=== PATIENT | female | born 1980 | race Caucasian/White ===

== ENCOUNTER 2016-08-08 04:11 | Inpatient (IN) | payer OTHER ==
[2016-08-08 05:50] LABS: Basophils % (Auto) 0.7 % (0.0-1.8); Eosinophils % (Auto) 1.2 % (0.0-4.3); Hematocrit 36.7 % (30.3-42.9); Hemoglobin 12.3 gm/dl (10.1-14.3); Mean Corpuscular HGB Conc 34 % (30-34); Mean Corpuscular Hemoglobin 28 pg (28-32); Mean Corpuscular Volume 84 fl (79-97); Platelet Count 251 K/mm3 (140-440); Red Blood Count 4.37 M/mm3 (3.65-5.03); Red Cell Distribution Width 13.6 % (13.2-15.2); White Blood Count 4.3 K/mm3 (4.5-11.0)
[2016-08-08 05:59] LABS: Anion Gap 16 mmol/L; BUN/Creatinine Ratio 8.18; Blood Urea Nitrogen 9 mg/dL (7-17); Calcium 9.2 mg/dL (8.4-10.2); Carbon Dioxide 26 mmol/L (22-30); Glucose 98 mg/dL (65-100); Potassium 3.5 mmol/L (3.6-5.0); Sodium 134 mmol/L (137-145)
[2016-08-08 06:37] LABS: Bilirubin,Urine NEG (Negative); Blood,Urine SM (Negative); Ketones,Urine NEG (Negative); Leukocyte Esterase,Urine TR (Negative); Mucus,Urine FEW /HPF; Nitrite,Urine NEG (Negative); Protein,Urine <15 mg/dL mg/dL (Negative); Urobilinogen,Urine < 2.0 mg/dL (<2.0)
--- NOTE | 2016-08-08 12:29 | Emergency Department Report ---
Chief Complaint: Chest Pain Stated Complaint: CHEST PAIN Time Seen by Provider: 08/08/16 12:25 - HPI History of Present Illness: PT c/o chest pain x 2 days. PT states she was eating when the pain first started. - ROS Review of Systems: - cough + back pain - vomiting - Exam Vital Signs: Vital Signs 08/08/16 05:00 Temperature 97.9 F Pulse Rate 87 Respiratory 18 Rate Blood Pressure 125/75 O2 Sat by Pulse 100 Oximetry Physical Exam: PT looks well, non toxic. PT has no acute resp distress. GCS 15 + chest wall ttp MSE screening note: Focused history and physical exam performed. Due to findings the following was ordered: xr ED Medical Decision Making - Lab Data Result diagrams: 08/08/16 05:25 08/08/16 05:25 ED Disposition for MSE Condition: Stable Referrals: PRIMARY CARE, [Primary Care Provider] - 3-5 Days
--- NOTE | 2016-08-08 12:57 | XRay Report ---
CHEST 2 VIEWS INDICATION: Chest pain. COMPARISON: None similar at this institution. FINDINGS: PA and lateral chest radiographs demonstrate normal cardiomediastinal silhouette. Clear lungs. Intact bones. CONCLUSION: No acute disease in the chest. Thank you for the opportunity to participate in this patient's care.
[2016-08-08] MEDS ORDERED: ZOFRAN IV ONE (15:20)
[2016-08-08] MEDS ORDERED: MORPHINE IV ONE (15:20)
[2016-08-08] MEDS ORDERED: ASPIRIN PO ONE (15:20)
[2016-08-08] MEDS ORDERED: NITRO-BID 2% TP ONE (15:20)
--- NOTE | 2016-08-08 15:30 | Emergency Department Report ---
HPI - General Chief Complaint: Chest Pain Time Seen by Provider: 08/08/16 12:25 - HPI HPI: Room 19 The patient is a 35-year-old female presenting with a chief complaint of chest pain. The patient states for the past 2 days she has had pain substernally radiating to the left chest and left upper extremity. Patient describes the pain as a pressure, pushing, squeezing, punching in nature. Patient admits to shortness of breath and diaphoresis with her chest pain. Patient denies nausea/ vomiting. Patient states her pain has been constant. The patient gives her pain a score of 10/10. Patient denies cough. Patient states she's never had a stress test or cardiac catheterization Location: [see above] Duration: [see above] Quality: [see above] Severity: 10/10 Modifying factors: [see above] Context: [see above] Mode of transportation: [not driving] ED Past Medical Hx - Past Medical History Previous Medical History?: Yes Additional medical history: diagnosed with UTI and yeast infection 1 week ago and took Diflucan, Bactrim, and Tramadol. Recently diagnosed with Fibroids - Surgical History Past Surgical History?: No - Family History Family history: no significant - Social History Smoking Status: Never Smoker Substance Use Type: None (denies illicit drug use) ED Review of Systems ROS: Stated complaint: CHEST PAIN Other details as noted in HPI Comment: All other systems reviewed and negative Constitutional: diaphoresis Eyes: denies: eye pain, eye discharge, vision change ENT: denies: ear pain, throat pain Respiratory: shortness of breath Cardiovascular: chest pain. denies: palpitations Endocrine: no symptoms reported Gastrointestinal: denies: nausea, vomiting Genitourinary: denies: urgency, dysuria, discharge Musculoskeletal: denies: back pain, joint swelling, arthralgia Skin: denies: rash, lesions Neurological: denies: headache, weakness, paresthesias Psychiatric: denies: anxiety, depression Hematological/Lymphatic: denies: easy bleeding, easy bruising Physical Exam - Physical Exam Vital Signs: Vital Signs 08/08/16 08/08/16 05:00 12:20 Temperature 97.9 F 99.0 F Pulse Rate 87 87 Respiratory 18 16 Rate Blood Pressure 125/75 125/80 O2 Sat by Pulse 100 100 Oximetry Physical Exam: GENERAL: The patient is well-developed well-nourished female lying on stretcher not appear to be in acute distress. [] HEENT: Normocephalic. Atraumatic. Extraocular motions are intact. Patient has moist mucous membranes. NECK: Supple. Trachea midline CHEST/LUNGS: Clear to auscultation. There is no respiratory distress noted. HEART/CARDIOVASCULAR: Regular. There is no tachycardia. There is no gallop rub or murmur. ABDOMEN: Abdomen is soft, nontender. Patient has normal bowel sounds. There is no abdominal distention. SKIN: There is no rash. There is no edema. There is no diaphoresis. NEURO: The patient is awake, alert, and oriented. The patient is cooperative. The patient has normal speech MUSCULOSKELETAL: There is no evidence of acute injury. ED Course Vital Signs 08/08/16 08/08/16 05:00 12:20 Temperature 97.9 F 99.0 F Pulse Rate 87 87 Respiratory 18 16 Rate Blood Pressure 125/75 125/80 O2 Sat by Pulse 100 100 Oximetry ED Medical Decision Making - Lab Data Result diagrams: 08/08/16 05:25 08/08/16 05:25 Laboratory Tests 08/08/16 08/08/16 08/08/16 05:25 05:25 06:00 WBC 4.3 L RBC 4.37 Hgb 12.3 Hct 36.7 MCV 84 MCH 28 MCHC 34 RDW 13.6 Plt Count 251 Lymph % (Auto) 22.7 [place] % (Auto) 10.0 H Eos % (Auto) 1.2 Baso % (Auto) 0.7 Lymph # 1.0 L [place] # 0.4 Eos # 0.1 Baso # 0.0 Seg Neutrophils % 65.4 Seg Neutrophils # 2.8 Sodium 134 L Potassium 3.5 L Chloride 96.0 L Carbon Dioxide 26 Anion Gap 16 BUN 9 Creatinine 1.1 Estimated GFR 57 BUN/Creatinine Ratio 8.18 Glucose 98 Calcium 9.2 Troponin T < 0.010 Urine Color Yellow Urine Turbidity Clear Urine pH 5.0 Ur Specific [place] 1.010 Urine Protein <15 mg/dl Urine Glucose (UA) Neg Urine Ketones Neg Urine Blood Sm Urine Nitrite Neg Ur Reducing Substances Not Reportable Urine Bilirubin Neg Urine Ictotest Not Reportable Urine Urobilinogen < 2.0 Ur Leukocyte Esterase Tr Urine WBC (Auto) 6.0 Urine RBC (Auto) 1.0 U Epithel Cells (Auto) 6.0 Urine Mucus Few Urine HCG, Qual Negative 08/08/16 08/08/16 08:43 11:15 WBC RBC Hgb Hct MCV MCH MCHC RDW Plt Count Lymph % (Auto) [place] % (Auto) Eos % (Auto) Baso % (Auto) Lymph # [place] # Eos # Baso # Seg Neutrophils % Seg Neutrophils # Sodium Potassium Chloride Carbon Dioxide Anion Gap BUN Creatinine Estimated GFR BUN/Creatinine Ratio Glucose Calcium Troponin T < 0.010 < 0.010 Urine Color Urine Turbidity Urine pH Ur Specific [place] Urine Protein Urine Glucose (UA) Urine Ketones Urine Blood Urine Nitrite Ur Reducing Substances Urine Bilirubin Urine Ictotest Urine Urobilinogen Ur Leukocyte Esterase Urine WBC (Auto) Urine RBC (Auto) U Epithel Cells (Auto) Urine Mucus Urine HCG, Qual - EKG Data -: EKG Interpreted by Me EKG shows normal: sinus rhythm Rate: normal - EKG Data When compared to previous EKG there are: previous EKG unavailable Interpretation: other (no ischemic changes seen) - Radiology Data Radiology results: image reviewed (chest x-ray) interpreted by me: Chest x-ray-no focal infiltrates, no pneumothorax - Differential Diagnosis ACS, GERD, pericarditis, pneumonia, pneumothorax Critical care attestation.: If time is entered above; I have spent that time in minutes in the direct care of this critically ill patient, excluding procedure time. ED Disposition Clinical Impression: Chest pain Disposition: OP ADMIT IP TO THIS HOSP Is pt being admited?: Yes Does the pt Need Aspirin: Yes Condition: Fair Instructions: Chest Pain (ED) Referrals: PRIMARY CARE, [Primary Care Provider] - 3-5 Days Time of Disposition: 15:32 (hospitalist notified)
[2016-08-08] MEDS ORDERED: MILK OF MAGNESIA PO PRN (17:22)
[2016-08-08] MEDS ORDERED: ZOFRAN IV PRN (17:22)
[2016-08-08] MEDS ORDERED: TYLENOL PO PRN (17:22)
[2016-08-08] MEDS ORDERED: DULCOLAX PR PRN (17:22)
[2016-08-08] MEDS ORDERED: SODIUM CHLORIDE FLUSH SYRINGE 10 ML IV PRN (17:23)
--- NOTE | 2016-08-08 17:36 | History and Physical Report ---
History of Present Illness Date of examination: 08/08/16 Date of admission: 08/08/16 15:33 Chief complaint: L side chest pain 1 day History of present illness: MEMO The patient is a 35-year-old female presenting with a chief complaint of chest pain. The patient states for the past 2 days she has had pain substernally radiating to the left chest and left upper extremity. Patient describes the pain as a pressure, pushing, squeezing, punching in nature. Patient admits to shortness of breath and diaphoresis with her chest pain. Patient denies nausea/ vomiting. Patient states her pain has been constant. The patient gives her pain a score of 10/10. Patient denies cough. Patient states she's never had a stress test or cardiac catheterization Location: [see above] Duration: [see above] Quality: [see above] Severity: 10/10 Modifying factors: [see above] Context: [see above] Mode of transportation: [not driving] ED Past Medical Hx - Past Medical History Previous Medical History?: Yes Additional medical history: diagnosed with UTI and yeast infection 1 week ago and took Diflucan, Bactrim, and Tramadol. Recently diagnosed with Fibroids - Surgical History Past Surgical History?: No - Family History Family history: no significant - Social History Smoking Status: Never Smoker Substance Use Type: None (denies illicit drug use) ED Review of Systems ROS: Stated complaint: CHEST PAIN Other details as noted in HPI Comment: All other systems reviewed and negative Constitutional: diaphoresis Eyes: denies: eye pain, eye discharge, vision change ENT: denies: ear pain, throat pain Respiratory: shortness of breath Cardiovascular: chest pain. denies: palpitations Endocrine: no symptoms reported Gastrointestinal: denies: nausea, vomiting Genitourinary: denies: urgency, dysuria, discharge Musculoskeletal: denies: back pain, joint swelling, arthralgia Skin: denies: rash, lesions Neurological: denies: headache, weakness, paresthesias Psychiatric: denies: anxiety, depression Hematological/Lymphatic: denies: easy bleeding, easy bruisi Medications and Allergies Allergies Allergy/AdvReac Type Severity Reaction Status Date / Time No Known Allergies Allergy Unverified 08/08/16 04:55 Home Medications Medication Instructions Recorded Confirmed Last Taken Type Sulfamethoxazole/Trimethoprim 1 each PO Q12H 06/08/08/16 08/08/16 History [Sulfamethoxazole-Tmp Ss Tablet] traMADol [Ultram 50 MG tab] 50 mg PO Q4HR PRN 08/08/16 08/08/16 08/08/16 History Multivitamin Tab [Multiple Vitamin 1 each PO QDAY #30 tablet 08/09/16 Unknown Rx TAB (Theragran)] oxyCODONE /ACETAMINOPHEN [Percocet 1 tab PO Q6H PRN #15 tablet 08/09/16 Unknown Rx 5/325 mg] Active Meds: Active Medications Acetaminophen (Tylenol) 650 mg PO Q4H PRN PRN Reason: Pain MILD(1-3)/Fever >100.5/SAVAGE Bisacodyl (Dulcolax) 10 mg [place] QDAY PRN PRN Reason: Constipation unrelieved by MOM Magnesium Hydroxide (Milk Of Magnesia) 30 ml PO Q4H PRN PRN Reason: Constipation Ondansetron HCl (Zofran) 4 mg IV Q8H PRN PRN Reason: N/V unrelieved by Reglan Oxycodone/Acetaminophen (Percocet 5/325) 1 tab PO Q6H PRN PRN Reason: Pain, Moderate (4-6) Sodium Chloride (Sodium Chloride Flush Syringe 10 Ml) 10 ml IV PRN PRN PRN Reason: LINE FLUSH Review of Systems All systems: negative Exam - Physical Exam Narrative exam: Young male lying comfortably - Constitutional Vitals: Temp Pulse Resp BP Pulse Ox 98.4 F 79 20 179/87 100 08/08/16 16:40 08/08/16 16:40 08/08/16 16:40 08/08/16 16:40 08/08/16 16:40 General appearance: Present: no acute distress, well-nourished - EENT Eyes: Present: PERRL ENT: hearing intact, clear oral mucosa - Neck Neck: Present: supple, normal ROM - Respiratory Respiratory effort: normal Respiratory: bilateral: CTA - Cardiovascular Heart rate: 76 Rhythm: regular Heart Sounds: Present: S1 & S2. Absent: rub, click - Extremities Extremities: no ischemia, pulses intact, pulses symmetrical, No edema Peripheral Pulses: within normal limits - Abdominal General gastrointestinal: Present: soft, non-tender, non-distended, normal bowel sounds Female genitourinary: Present: normal - Rectal Rectal Exam: deferred - Integumentary Integumentary: Present: clear, warm, dry - Musculoskeletal Musculoskeletal: gait normal, strength equal bilaterally - Psychiatric Psychiatric: appropriate mood/affect, intact judgment & insight - Neurologic Neurologic: CNII-XII intact, moves all extremities, gait normal - Allied Health Allied health notes reviewed: nursing Results - Labs CBC & Chem 7: 08/09/16 05:23 08/09/16 05:23 Labs: Laboratory Last Values WBC 4.3 K/mm3 (4.5-11.0) L 08/08/16 05:25 RBC 4.37 M/mm3 (3.65-5.03) 08/08/16 05:25 Hgb 12.3 gm/dl (10.1-14.3) 08/08/16 05:25 Hct 36.7 % (30.3-42.9) 08/08/16 05:25 MCV 84 fl (79-97) 08/08/16 05:25 MCH 28 pg (28-32) 08/08/16 05:25 MCHC 34 % (30-34) 08/08/16 05:25 RDW 13.6 % (13.2-15.2) 08/08/16 05:25 Plt Count 251 K/mm3 (140-440) 08/08/16 05:25 Lymph % (Auto) 22.7 % (13.4-35.0) 08/08/16 05:25 [place] % (Auto) 10.0 % (0.0-7.3) H 08/08/16 05:25 Eos % (Auto) 1.2 % (0.0-4.3) 08/08/16 05:25 Baso % (Auto) 0.7 % (0.0-1.8) 08/08/16 05:25 Lymph # 1.0 K/mm3 (1.2-5.4) L 08/08/16 05:25 [place] # 0.4 K/mm3 (0.0-0.8) 08/08/16 05:25 Eos # 0.1 K/mm3 (0.0-0.4) 08/08/16 05:25 Baso # 0.0 K/mm3 (0.0-0.1) 08/08/16 05:25 Seg Neutrophils % 65.4 % (40.0-70.0) 08/08/16 05:25 Seg Neutrophils # 2.8 K/mm3 (1.8-7.7) 08/08/16 05:25 Sodium 134 mmol/L (137-145) L 08/08/16 05:25 Potassium 3.5 mmol/L (3.6-5.0) L 08/08/16 05:25 Chloride 96.0 mmol/L (98-107) L 08/08/16 05:25 Carbon Dioxide 26 mmol/L (22-30) 08/08/16 05:25 Anion Gap 16 mmol/L 08/08/16 05:25 BUN 9 mg/dL (7-17) 08/08/16 05:25 Creatinine 1.1 mg/dL (0.7-1.2) 08/08/16 05:25 Estimated GFR 57 ml/min 08/08/16 05:25 BUN/Creatinine Ratio 8.18 % 08/08/16 05:25 Glucose 98 mg/dL (65-100) 08/08/16 05:25 Calcium 9.2 mg/dL (8.4-10.2) 08/08/16 05:25 Troponin T < 0.010 ng/mL (0.00-0.029) 08/08/16 11:15 Urine Color Yellow (Yellow) 08/08/16 06:00 Urine Turbidity Clear (Clear) 08/08/16 06:00 Urine pH 5.0 (5.0-7.0) 08/08/16 06:00 Ur Specific [place] 1.010 (1.003-1.030) 08/08/16 06:00 Urine Protein <15 mg/dl mg/dL (Negative) 08/08/16 06:00 Urine Glucose (UA) Neg mg/dL (Negative) 08/08/16 06:00 Urine Ketones Neg mg/dL (Negative) 08/08/16 06:00 Urine Blood Sm (Negative) 08/08/16 06:00 Urine Nitrite Neg (Negative) 08/08/16 06:00 Ur Reducing Substances Not Reportable 08/08/16 06:00 Urine Bilirubin Neg (Negative) 08/08/16 06:00 Urine Ictotest Not Reportable 08/08/16 06:00 Urine Urobilinogen < 2.0 mg/dL (<2.0) 08/08/16 06:00 Ur Leukocyte Esterase Tr (Negative) 08/08/16 06:00 Urine WBC (Auto) 6.0 /HPF (0.0-6.0) 08/08/16 06:00 Urine RBC (Auto) 1.0 /HPF (0.0-6.0) 08/08/16 06:00 U Epithel Cells (Auto) 6.0 /HPF (0-13.0) 08/08/16 06:00 Urine Mucus Few /HPF 08/08/16 06:00 Urine HCG, Qual Negative (Negative) 08/08/16 06:00 Short CBC 08/09/16 Range/Units 05:23 WBC 5.4 (4.5-11.0) K/mm3 Hgb 12.3 (10.1-14.3) gm/dl Hct 36.5 (30.3-42.9) % Plt Count 288 (140-440) K/mm3 BMP 08/09/16 05:23 Sodium 139 Potassium 4.3 D Chloride 99.0 Carbon Dioxide 28 BUN 7 Creatinine 1.0 Glucose 111 H Calcium 8.9 Cardiac Enzymes 08/08/16 08/08/16 08/08/16 Range/Units 18:15 19:53 23:41 Total Creatine Kinase 54 50 44 (30-135) units/L CK-MB (CK-2) < 1.0 < 1.0 < 1.0 (0.0-4.0) ng/mL Troponin T < 0.010 < 0.010 < 0.010 (0.00-0.029) ng/mL Liver Function 08/09/16 Range/Units 05:23 Total Bilirubin 0.40 (0.1-1.2) mg/dL AST 25 (5-40) units/L ALT 25 (7-56) units/L Alkaline Phosphatase 79 (35-129) units/L Albumin 4.2 (3.9-5) g/dL Urine 08/08/16 Range/Units 06:00 Urine Color Yellow (Yellow) Urine pH 5.0 (5.0-7.0) Ur Specific [place] 1.010 (1.003-1.030) Urine Protein <15 mg/dl (Negative) mg/dL Urine Glucose (UA) Neg (Negative) mg/dL - Imaging and Cardiology EKG: report reviewed (NSR) Assessment and Plan Advance Directives: Yes (Full code) VTE prophylaxis?: Chemical Plan of care discussed with patient/family: Yes - Patient Problems (1) Chest pain in adult Current Visit: Yes Status: Acute Plan to address problem: R/o OR protocol.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
[2016-08-08 19:06] LABS: Creatine Kinase 54 units/L (30-135); Creatine Kinase MB < 1.0 ng/mL (0.0-4.0)
[2016-08-08 20:34] LABS: Creatine Kinase 50 units/L (30-135)
[2016-08-08 20:41] LABS: Creatine Kinase MB < 1.0 ng/mL (0.0-4.0)
[2016-08-08] MEDS: PERCOCET 5/325 PO PRN (21:10)
[2016-08-09 00:51] LABS: Creatine Kinase 44 units/L (30-135)
[2016-08-09 01:08] LABS: Creatine Kinase MB < 1.0 ng/mL (0.0-4.0)
[2016-08-09 05:55] LABS: Basophils % (Auto) 0.6 % (0.0-1.8); Eosinophils % (Auto) 1.9 % (0.0-4.3); Hematocrit 36.5 % (30.3-42.9); Hemoglobin 12.3 gm/dl (10.1-14.3); Mean Corpuscular HGB Conc 34 % (30-34); Mean Corpuscular Hemoglobin 28 pg (28-32); Mean Corpuscular Volume 83 fl (79-97); Platelet Count 288 K/mm3 (140-440); Red Blood Count 4.41 M/mm3 (3.65-5.03); Red Cell Distribution Width 13.5 % (13.2-15.2); White Blood Count 5.4 K/mm3 (4.5-11.0)
[2016-08-09 06:14] LABS: Alanine Aminotransferase 25 units/L (7-56); Albumin 4.2 g/dL (3.9-5); Albumin/Globulin Ratio 1.1 %; Alkaline Phosphatase 79 units/L (35-129); Anion Gap 16 mmol/L; Blood Urea Nitrogen 7 mg/dL (7-17); Calcium 8.9 mg/dL (8.4-10.2); Carbon Dioxide 28 mmol/L (22-30); Glucose 111 mg/dL (65-100); Sodium 139 mmol/L (137-145); Total Protein 8.2 g/dL (6.3-8.2)
[2016-08-09 06:17] LABS: Potassium 4.3 mmol/L (3.6-5.0)
--- NOTE | 2016-08-09 08:28 | Discharge Summary ---
Providers - Providers Date of Admission: 08/08/16 15:33 Date of discharge: 08/09/16 Attending physician: ANDRES BARBER 08/08/16 Consult to Cardiac Rehabilitation [CONS] Routine Reason For Exam: Phase I Primary care physician: CHRISTIAN COUNSELOR Hospitalization Reason for admission: cp Condition: Fair Hospital course: This is a 35-year-old female with only past medical history of recently diagnosed UTI and uterine fibroids who presented to the emergency department with chief complaint of chest pain. Patient reports the pain as substernal radiating to the left chest and left upper extremity described as a pressure squeezing character. EKG and troponins were found to be negative. Patient underwent stress thallium which was also found to be negative. Patient was found to have no abnormalities on telemetry. Etiology of chest pain most likely costochondritis. Patient was felt to have received maximal hospital benefit. Dedicated discharge time 31 minutes. Disposition: DC-30 STILL A PATIENT - Discharge Diagnoses (1) Costochondritis Status: Acute (2) Chest pain Status: Acute Qualifiers: Chest pain type: C Ischemic chest pain type: I Core Measure Documentation - Palliative Care Palliative Care/ Comfort Measures: Not Applicable - Core Measures Any of the following diagnoses?: none Exam - Constitutional Vitals: Temp Pulse Resp BP Pulse Ox 98.5 F 79 20 106/68 100 08/09/16 03:50 08/09/16 06:00 08/09/16 03:50 08/09/16 03:50 08/09/16 03:50 General appearance: Present: no acute distress, well-nourished - EENT Eyes: Present: PERRL ENT: hearing intact, clear oral mucosa - Neck Neck: Present: supple, normal ROM - Respiratory Respiratory effort: normal Respiratory: bilateral: CTA - Cardiovascular Heart Sounds: Present: S1 & S2. Absent: rub, click - Extremities Extremities: pulses symmetrical, No edema Peripheral Pulses: within normal limits - Abdominal General gastrointestinal: Present: soft, non-tender, non-distended, normal bowel sounds Female genitourinary: Present: normal - Integumentary Integumentary: Present: clear, warm, dry - Musculoskeletal Musculoskeletal: gait normal, strength equal bilaterally - Psychiatric Psychiatric: appropriate mood/affect, intact judgment & insight - Neurologic Neurologic: CNII-XII intact, moves all extremities Plan Activity: no restrictions Weight Bearing Status: Full Weight Bearing Diet: regular Follow up with: PRIMARY CARE,MD [Primary Care Provider] - 3-5 Days Prescriptions: Multivitamin Tab [Multiple Vitamin TAB (Theragran)] 1 each PO QDAY #30 tablet oxyCODONE /ACETAMINOPHEN [Percocet 5/325 mg] 1 tab PO Q6H PRN #15 tablet PRN Reason: Pain, Moderate (4-6)
--- NOTE | 2016-08-09 09:46 | Admit Criteria Form ---
Admission Criteria Documentation: CARDIOLOGY GRG Clinical Indications for Admission to Inpatient Care ( Place 'X' for any and all applicable criteria): Hospital admission is needed for appropriate care of the patient because of ANY ONE of the following (1): [ ] I. Hemodynamic instability as indicated by ALL of the following (1)(2)(3) (4)(5) [ ]a) Vital signs or other findings not as expected for chronic patient condition or baseline [ ]b) Instability indicated by ANY ONE of the following: [ ]i) Hypotension [ ]ii) Symptomatic Tachycardia unresponsive to treatment ( e.g., analgesia, fluids, sedation as indicated) [ ]iii) Inadequate perfusion indicated by ANY ONE of the following: [ ] 1) Lactic acidosis (> 2 mmol/L) [ ] 2) New abnormal capillary refill (> 3 seconds) [ ] 3) Reduced urine output [ ] 4) New altered mental status [ ]iv) Orthostatic vital sign changes unresponsive to treatment (e.g., fluids) [ ]v) IV inotropic or vasopressor medication required to maintain adequate blood pressure or perfusion [ ] II. Severe heart failure as indicated by ANY ONE of the following(17)(18) [ ]a) Respiratory distress [ ]b) Hypotension [ ]c) Anasarca (refractory to outpatient therapy) [ ]d) Cardiac arrhythmias of immediate concern [ ]e) Myocardial ischemia [ ] III. Cardiac arrhythmias or findings of immediate concern indicated by ANY ONE of the following (19)(20): [ ] a) Heart rhythms that are inherently dangerous or unstable indicated by ANY ONE of the following (21)(22)(23): [ ] i) Resuscitated ventricular fibrillation or cardiac arrest [ ] ii) Ventricular escape rhythm [ ] iii) Sustained ventricular tachycardia (30 seconds or more of ventricular rhythm at greater than 100 beats per minute) [ ] iv) Nonsustained ventricular tachycardia and ANY ONE of the following: [ ] 1) Suspected cardiac ischemia as cause or consequence of ventricular tachycardia [ ] 2) In setting of acute myocarditis [ ] b) Unstable cardiac conduction defects indicated by ANY ONE of the following(23)(24)(25) [ ] i) Type II second-degree atrioventricular block [ ]ii) Third-degree atrioventricular block [ ]iii) New-onset left bundle branch block with suspected myocardial ischemia [ ]c) Any heart rhythm and ANY ONE of the following (21)(22)(26)(27) (28) [ ] i) Continuous long-term ECG monitoring needed (e.g., initiation of drug requiring monitoring for more than 24 hours) [ ] ii) Patient has automatic implanted cardioverter defibrillator that is repeatedly firing, malfunctioning, or in need of immediate adjustment of settings beyond the scope of ambulatory or observation care [ ]d) Heart rhythms of concern due to ANY ONE of the following: [ ] i) Hypotension [ ] ii) Respiratory distress [ ] iii) Association with other significant symptoms (e.g., bradycardia with syncope or ongoing dizziness, supraventricular tachycardia with chest pain (14)(15)(17) [ ] IV. Monitoring for cardiac contusion beyond the scope of observation care needed [A](30)(31)(32) [ ] V. Surgical or device complication (e.g., valve replacement complication , pacemaker dysfunction) (35)(41)(44)(45)(46) [ ] . Inpatient palliative care needed. [B](49) Also use Inpatient Palliative Care Criteria [ ] VII. Nonbacterial thrombotic (marantic) endocarditis (36)(43)(47)(48) [X] VIII. Cardiology condition, symptom, or finding for which emergency and observation care has failed or are not considered appropriate. [ ] IX. Acute valvular disease requiring inpatient as indicated by ANY ONE of the following (41) [ ]a) Acute valvular regurgitation (42) [ ]b) Noninfectious valvulitis (43) [ ]c) Obstructive valve thrombosis [ ]d) Paravalvular leak [ ]e) Other significant valvular disorder remaining after emergency or observation level of care (as appropriate) [ ]X. Pericardial disease requiring inpatient treatment as indicated by ANY ONE of the following (33)(34)(35)(36)(37) [ ]a) Suspected tamponade (38)(39)(40) [ ]b) Hemopericardium [ ]c) Other significant pericardial disorder remaining after emergency or observation level of care (as appropriate) [ ] XI. Cardiac ischemia beyond scope of emergency and observation care. [ ] XII. Hypertension requiring inpatient treatment as indicated by ANY ONE of the following (6)(7)(8) [ ]a) SBP greater than 220 mm Hg or DBP greater than 120 mmHg despite treatment [ ]b) SBP greater than 140 mm Hg or DBP greater than 100 mm Hg with evidence of acute end organ damage as indicated by ANY ONE of the following [ ] i) Altered mental status [ ] ii) Acute renal failure as indicated by new onset of ANY ONE of the following (9)(10)(11)(12)(13) [ ]1) 3-fold rise in serum creatinine from baseline [ ]2) Serum creatinine greater than 4 mg/dL ( 354 micromoles/L) with acute rise greater than 0.5 mg/dL (44.2 micromoles/L) [ ]3) Reduction of more than 75% in estimated glomerular filtration rate from baseline [ ]4) Estimated glomerular filtration rate less than 35 mL/min/1.73m2 (0.59 mL/sec/1.73m2) in child up to 18 years of age [ ]5) Cessation of urine output indicated by ALL of the following [ ]A. Adequate volume status [ ]B. Inadequate urine output as indicated by ANY ONE of the following [ ]a. Urine output less than 0.3 mL/kg/hr for 24 hours [ ]b. Anuria (urine output less than 0.1 mL/kg/hr) for 12 hours [ ] iii) Aortic dissection [ ] iv) Myocardial Ischemia [ ] v) Left ventricular heart failure [ ]vi) Retinal Hemorrhage [ ]vii) Other significant finding [ ]c) Hypertension in child requiring inpatient treatment as indicated by ALL of the following(14)(15)(16) [ ] i) Outpatient treatment not effective, not available, or not appropriate [ ]ii) SBP or DBP greater than 95th percentile for age [ ]iii) Evidence of acute end organ damage as indicated by ANY ONE of the following [ ]1) Altered mental status [ ]2) Acute renal failure as indicated by new onset of ANY ONE of the following(9)(10)(11)(12)(13) [ ]A. 3-fold rise in serum creatinine from baseline [ ]B. Serum creatinine greater than 4 mg/dL (354 micromoles/L) with acute rise greater than 0.5 mg/dL (44.2 micromoles/L) [ ]C. Reduction of more than 75% in estimated glomerular filtration rate from baseline [ ]D. Estimated glomerular filtration rate less than 35 mL/min/1.73m2 (0.59 mL/sec/1.73m2) in child up to 18 years of age [ ]E. Cessation of urine output indicated by ALL of the following [ ]a. Adequate volume status [ ]b. Inadequate urine output as indicated by ANY ONE of the following [ ]i) Urine output less than 0.3 mL/kg/hr for 24 hours [ ]ii) Anuria ( urine output less than 0.1 mL/kg/hr) for 12 hours [ ]3) Severe headache [ ]4) Visual disturbance [ ]5) Retinal hemorrhage [ ]6) Other significant finding [ ]XIII. Complications of transplanted heart indicated by ANY ONE of the following(61): [ ]a) Acute graft rejection requiring inpatient management (eg, intravenous immunosuppression)(62)(63) [ ]b) Acute graft heart failure indicated by ANY ONE of the following(64): [ ]i) Hemodynamic instability [ ]ii) Cardiac arrhythmias of immediate concern [ ]iii) Pulmonary edema that is very severe (eg, mechanical ventilation needed, imminent or likely, need for 100% oxygen to keep oxygen saturation above 90%) [ ]iv) Pulmonary edema that is persistent as indicated by ALL of the following: [ ]1) New need for oxygen therapy to keep oxygen saturation above 90% (or increased FiO2 need from baseline) [ ]2) Has not improved sufficiently with emergency department or observation care IV diuretics or other heart failure treatments[E] [ ]v) Altered mental status that is severe or persistent [ ]vi) Increased creatinine (new on laboratory test) with reduction of more than 50% in estimated glomerular filtration rate from baseline [ ]vii) Progressively (ongoing) rising creatinine (known from past laboratory test) with reduction of more than 25% in estimated glomerular filtration rate from baseline [ ]viii) Acute renal failure [ ]ix) Acute peripheral ischemia (eg, examination shows pulseless, cool, mottled, or cyanotic extremity) [ ]x) Pulmonary artery catheter monitoring needed [ ]xi) Other sign or symptom of heart failure requiring inpatient treatment (ie, too severe or not responsive to outpatient and observation care treatment) [ ]c) Infection requiring inpatient management (eg, Hemodynamic instability, need for intravenous antimicrobial treatment)(66)(67)(68)(69)(70) [ ]d) Cardiac allograft vasculopathy requiring inpatient management ( eg evidence of cardiac ischemia)(71) [ ]e) Other complication of transplanted heart (eg, stroke, severe pulmonary hypertension, severe valvular dysfunction) requiring inpatient management(72) The original [facility] [employer] content created by [employer] has been revised. The portions of the content which have been revised are identified through the use of italic text or in bold, and [facility] has neither reviewed nor approved the modified material. All other unmodified content is copyright [facility] [employer]. Please see references footnoted in the original [facility] [employer] edition 2016 Admission Criteria Met: Yes
[2016-08-09 13:52] VITALS: BP 106/58
[2016-08-09] MEDS: PERCOCET 5/325 PO PRN (14:24)
--- NOTE | 2016-08-09 14:48 | Event Note ---
Date: 08/09/16 Patient was referred to stress lab for exercise stress. Due to significant chest wall tenderness (which is her reproducible chest "pain "), she is not a candidate for exercise testing at this time. Test is cancelled, pending specific treatment for musculoskeletal pain. When chest wall pain and tenderness is resolved, please reorder stress test if there is still a suspicion for CAD.
== END 2016-08-09 16:30 | disposition home or self-care (01) | DRG 206 ==
LOC: ED 04:11 → 4A 15:33
PROVIDERS: ADMIT Internal Medicine; ATTEND Hospitalist
DX: M94.0 Chondrocostal junction syndrome [Tietze] (principal); S41.001A Unspecified open wound of right shoulder, initial encounter; S41.101A Unspecified open wound of right upper arm, initial encounter; R07.9 Chest pain, unspecified; Z87.440 Personal history of urinary (tract) infections
CPT/HCPCS: 36415; 71020; 80048; 80053; 81001; 81025; 82550; 82553; 83036; 84484; 85025; 93005; 93010; 96374; 96375; J2270; J2405